=== PATIENT | male | born 1995 | race Two or more races ===

== ENCOUNTER 2019-06-26 21:33 | Emergency (ER) | payer SELFPAY ==
[~2019-06-26] VITALS: Ht 162.6 cm; Wt 82.0 kg
[2019-06-26] MEDS ORDERED: KETOROLAC 30MG/ML VIAL IV STA (22:16)
[2019-06-26] MEDS ORDERED: MAGNESIUM/ALUMINUM HYDROXIDE/SIMETHICONE 30ML UDC PO STA (22:16)
[2019-06-26] MEDS ORDERED: SODIUM CHLORIDE 0.9% 1,000 ML IV ONE (22:16)
[2019-06-26] MEDS ORDERED: ONDANSETRON HCL 4MG/2ML INJ IV STA (22:16)
[2019-06-26 22:47] LABS: BASOPHILS % 0.3 % (0.0-2.0); EOSINOPHILS % 0.4 % (0.0-5.0); HEMATOCRIT. 48.2 % (42.0-52.0); LYMPHOCYTES % 17.3 % (20.0-50.0); MEAN CORPUSCULAR HEMOGLOBIN 30.3 pg (28.0-32.0); MEAN CORPUSCULAR VOLUME 85.7 fL (80.0-94.0); MEAN PLATELET VOLUME 8.4 fl (7.4-10.4); PLATELET 215 x1000/uL (130-400); RED BLOOD CELL COUNT 5.62 mill/uL (4.7-6.1); RED CELL DISTRIBUTION WIDTH 12.6 % (11.6-14.6)
[2019-06-26 22:53] LABS: CHLORIDE 102 mEq/L (98-107)
[2019-06-27] MEDS ORDERED: MORPHINE SULFATE 4 MG/ML CPJ (NOT FOR IM USE) IV ONE (00:30)
[2019-06-27] MEDS ORDERED: IOHEXOL-350 100 ML BOTTLE ONE (00:59)
[2019-06-27 02:00] VITALS: BP 127/70
== END 2019-06-27 02:23 | disposition home or self-care (01) ==
LOC: ER 21:33
DX: K29.70 Gastritis, unspecified, without bleeding (principal)
CPT/HCPCS: 36415; 71045; 71275; 76705; 80053; 83690; 85025; 93005; 96374; 96375; 99285; J1885; J2270; J2405; J7030; Q9967